=== PATIENT | female | born 1940 | race Two or more races ===

== ENCOUNTER 2017-01-23 20:21 | Emergency (ER) | payer SELFPAY ==
[~2017-01-23] VITALS: Ht 154.9 cm; Wt 72.6 kg
[2017-01-23 21:55] LABS: Basophils # (auto) 0.1 uL; Basophils % (auto) 0.5 % (0.0-2.0); Eosinophils # (auto) 0.1 uL; Hemoglobin 12.8 g/dL (12.2-16.2); Lymphocytes # (auto) 1.6 uL; Lymphocytes % (auto) 12.4 % (10.0-50.0); Mean Corpuscular Hemoglobin 30.1 pg (28.0-32.0); Mean Corpuscular Hgb Conc. 32.8 g/dL (32.0-36.0); Monocytes # (auto) 0.7 uL; Monocytes % (auto) 5.6 % (0.0-12.0); Neutrophils # (auto) 10.5 uL; Neutrophils % (auto) 80.5 % (37.0-80.0); Platelet Count (auto) 220 10^3/uL (140-450); Red Cell Distribution Width 13.9 % (11.8-14.3)
[2017-01-23 22:15] LABS: Potassium 3.6 mmol/L (3.5-5.1)
[2017-01-23 22:16] LABS: Albumin 3.6 g/dL (3.4-5.0); BUN/Creatinine Ratio 24.6; Bilirubin, Total 0.3 mg/dL (0.2-1.0); Calcium 8.6 mg/dL (8.5-10.1); Total Protein 7.8 g/dL (6.4-8.2)
[2017-01-23] MEDS ORDERED: cefTRIAXone SOD 1,000 MG VL ONE (22:26)
[2017-01-23] MEDS ORDERED: LIDOCAINE 1% HCL (LOCAL ANESTH.) INJ 20ML MDV ONE ×2 (22:26→23:03)
[2017-01-23] MEDS ORDERED: TETANUS-DIPTH-ACEL PERTUSSIS 0.5ML SYRG IM ONE (22:30)
[2017-01-23] MEDS ORDERED: cefTRIAXone W LIDOCAINE 1 GM IM IM ONE (22:30)
[2017-01-23] MEDS ORDERED: ACETAMINOPHEN 325 MG TAB PO ONE (22:32)
[2017-01-24] MEDS ORDERED: BACITRACIN-POLYMYXIN B TOPICAL OINT UD TOP ONE (00:59)
[2017-01-24 03:17] VITALS: BP 143/74
== END 2017-01-24 03:19 | disposition home or self-care (01) ==
LOC: EDBD 20:21 → ER 20:21
DX: S01.01XA Laceration without foreign body of scalp, initial encounter (principal); S16.1XXA Strain of muscle, fascia and tendon at neck level, initial encounter; S80.02XA Contusion of left knee, initial encounter; W01.0XXA Fall on same level from slipping, tripping and stumbling without subsequent striking against object, initial encounter; Y93.89 Activity, other specified; Y99.8 Other external cause status; Y92.89 Other specified places as the place of occurrence of the external cause
CPT/HCPCS: 12035; 36415; 70450; 72125; 73562; 80053; 85025; 90471; 90715; 99285; J0696; J2001